=== PATIENT | male | born 2000 | race Caucasian/White ===

== ENCOUNTER 2021-07-10 18:15 | Emergency (ER) | payer OTHER ==
[~2021-07-10] VITALS: Ht 180.3 cm; Wt 79.6 kg
[2021-07-11] MEDS ORDERED: PROPARACAINE 0.5% OPHTH SOL 15ML OU ONE (00:10)
[2021-07-11 00:14] LABS: BASO % 0.5 % (0.0-1.0); EOS # 0.1 10^3/uL (0.0-0.5); EOS % 1.5 % (0.0-3.0); HEMATOCRIT 43.5 % (42.0-52.0); HEMOGLOBIN 15.1 g/dl (13.5-17.5); LYMPH # 1.7 10^3/uL (1.5-5.0); LYMPH % 25.1 % (24.0-44.0); MEAN CORPUSCULAR HEMOGLOBIN 30.9 pg (27.0-33.0); MEAN CORPUSCULAR HGB CONC 34.7 g/dl (32.0-36.5); MEAN CORPUSCULAR VOLUME 89.1 fl (80.0-96.0); MONO # 0.7 10^3/uL (0.0-0.8); MONO % 11.1 % (2.0-8.0); NEUTROPHILS % 61.3 % (36.0-66.0); PLATELET COUNT, AUTOMATED 205 10^3/uL (150-450); RED BLOOD COUNT 4.88 10^6/uL (4.30-6.10); WHITE BLOOD COUNT 6.6 10^3/uL (4.0-10.0)
[2021-07-11 00:31] LABS: ALBUMIN 4.3 GM/DL (3.2-5.2); ALT/SGPT 25 U/L (12-78); BILIRUBIN,DIRECT 0.2 MG/DL (0.0-0.2); BILIRUBIN,TOTAL 0.7 MG/DL (0.2-1.0); BLOOD UREA NITROGEN 13 MG/DL (7-18); C REACTIVE PROTEIN QUANTITATIV 0.51 MG/DL (0.00-0.30); CALCIUM LEVEL 8.9 MG/DL (8.5-10.1); CARBON DIOXIDE LEVEL 28 MEQ/L (21-32); CHLORIDE LEVEL 105 MEQ/L (98-107); CREATININE FOR GFR 0.95 MG/DL (0.70-1.30); GLOMERULAR FILTRATION RATE > 60.0 (>60); GLUCOSE, FASTING 91 MG/DL (70-100); LIPASE 50 U/L (73-393); SODIUM LEVEL 138 MEQ/L (136-145); TOTAL PROTEIN 7.2 GM/DL (6.4-8.2)
--- NOTE | 2021-07-11 01:29 | REPVR ---
PROCEDURE INFORMATION: Exam: MR Head Without Contrast Exam date and time: 07/11/2021 12:37 AM Age: 21 years old Clinical indication: Other: Left sided headaches; Additional info: Shaking right hand with headaches gaps of time TECHNIQUE: Imaging protocol: MR of the head without contrast. COMPARISON: No relevant prior studies available. FINDINGS: Brain: There is patchy nonspecific cerebral cortical T2 hyperintensity most pronounced in the left cerebral hemisphere. Cerebral ventricles: Normal. No ventriculomegaly. Bones/joints: Unremarkable. Paranasal sinuses: Normal as visualized. No acute sinusitis. Mastoid air cells: Normal as visualized. No mastoid effusion. Orbital cavity: Unremarkable. Soft tissues: Unremarkable. IMPRESSION: There is patchy nonspecific cerebral cortical T2 hyperintensity most pronounced in the left cerebral hemisphere. Differential considerations predominantly include infectious and metabolic etiologies. Electronically signed by: Johnathan Kessler On 07/11/2021 01:28:54 AM
[2021-07-11 02:19] LABS: RSV AMPLIFICATION NEGATIVE (NEGATIVE)
[2021-07-11] MEDS ORDERED: PROHANCE 279.3MG/ML 15ML VIAL As Ordered ONE (02:49)
--- NOTE | 2021-07-11 03:42 | REPVR ---
PROCEDURE INFORMATION: Exam: MR Head With Contrast Exam date and time: 07/11/2021 3:02 AM Age: 21 years old Clinical indication: Other: Left sided headache/hand tremors; Additional info: Left sided pain/hand tremors/loss of time TECHNIQUE: Imaging protocol: MR of the head with intravenous contrast. Contrast material: PROHANCE; Contrast volume: 15 ml; Contrast route: INTRAVENOUS (IV); COMPARISON: MRI-Brain without Contrast 07/11/2021 12:16 AM FINDINGS: Brain: No abnormal enhancement. Cerebral ventricles: Normal. No ventriculomegaly. Bones/joints: Unremarkable. Paranasal sinuses: Normal as visualized. No acute sinusitis. Mastoid air cells: Normal as visualized. No mastoid effusion. Orbital cavity: Unremarkable. Soft tissues: Unremarkable. IMPRESSION: No abnormal enhancement. Electronically signed by: Johnathan Kessler On 07/11/2021 03:41:39 AM
[2021-07-11 04:33] VITALS: BP 133/68
--- NOTE | 2021-07-12 10:18 | ED PDOC ---
Post-Departure Follow-Up radiology report faxed to [facility] Naye Lion MD Jul 12, 2021 10:18
== END 2021-07-11 04:35 | disposition home or self-care (01) ==
LOC: M ED 18:15
DX: G43.909 Migraine, unspecified, not intractable, without status migrainosus (principal); R25.9 Unspecified abnormal involuntary movements
CPT/HCPCS: 70551; 70552; 80048; 80076; 83690; 84443; 85025; 86140; 87631; 99284; A9576

== ENCOUNTER 2023-04-14 04:42 | Emergency (ER) | payer OTHER ==
[~2023-04-14] VITALS: Ht 180.3 cm; Wt 82.8 kg
[2023-04-14 04:42] VITALS: TEMP 97.7
[2023-04-14] MEDS ORDERED: FLUORESCEIN OPHTH 1MG STRIP OD ONE (05:25)
[2023-04-14] MEDS ORDERED: TETRACAINE 0.5% OPHTH SOLN 4ML OD ONE (05:25)
[2023-04-14] MEDS ORDERED: ERYTHROMYCIN OPHTH OINT OD ONE (06:30)
[2023-04-14] MEDS ORDERED: ERYT5OIN25 OD (06:32)
[2023-04-14 06:47] VITALS: BP 130/74; O2SAT 98
== END 2023-04-14 06:49 | disposition home or self-care (01) ==
LOC: M ED 04:42
DX: S05.01XA Injury of conjunctiva and corneal abrasion without foreign body, right eye, initial encounter (principal); X58.XXXA Exposure to other specified factors, initial encounter; Y92.009 Unspecified place in unspecified non-institutional (private) residence as the place of occurrence of the external cause

== ENCOUNTER → 2025-01-20 | Outpatient (REF) | payer OTHER ==
[~2025-01-20] MED LIST: ERYT5OIN25 OD
[2025-01-20 10:32] LABS: SEMEN APPEARANCE OPAQUE (OPAQUE); SEMEN VISCOSITY LIQUID (LIQUID); SEMEN VOLUME 2.8 ml (2.0-5.0); SEMEN pH 8.5 (7.0-8.0); SPERM CONCENTRATION 42.1 M/ml (>=15.0); TOTAL PROGRESSIVE SPERM 52.1 M/Ejac.; WBC CONCENTRATION >1 M/ml (<=1 M/ml)
== END ==
LOC: M LAB REF 10:10
PROVIDERS: ATTEND General Practice
DX: N46.9 Male infertility, unspecified (principal)